=== PATIENT | female | born 1965 | race African-American/Black ===

== ENCOUNTER 2018-06-23 14:41 | Emergency (ER) | payer OTHER ==
[~2018-06-23] VITALS: Ht 160 cm; Wt 77.1 kg
--- OUTSIDE RECORDS SUMMARY | 2018-06-23 14:43 | XMS REPORT | Clinical Summary ---
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 06/22/2018 acetaminophen-codeine Take 1-2 15 tablet 0 (TYLENOL WITH CODEINE #3) tablets by 9 300-30 mg per tablet mouth every 6 (six) hours as needed for moderate pain for up to 5 days. Active Problems Not on file Encounters Care Team Description Date Type Specialty Kassandra Eubanks MD Acute foot pain, left (Primary Dx); Acute pain of right knee; Pain 06/16/2018 Emergency Emergency Medicine - 06/17/2018 after 06/22/2017 Social History Date Tobacco Use Types Packs/Day Years Used Current Some Day Smoker Smokeless Tobacco: Never Used Alcohol Use Drinks/Week oz/Week Comments No Alcohol Habits Answer Date Recorded How often do you have a drink containing alcohol? Never 06/17/2018 How many drinks containing alcohol do you have on Not asked a typical day when you are drinking? How often do you have six or more drinks on one Not asked occasion? Sex Assigned at Date Recorded Not on file Industry Job Start Date Occupation Not on file Not on file Not on file Travel End Travel History Travel Start No recent travel history available. Last Filed Vital Signs Time Taken Vital Sign Reading 06/17/2018 2:30 AM CDT Blood Pressure 128/58 06/17/2018 2:30 AM CDT Pulse 82 06/16/2018 10:54 PM CDT Temperature 36.7 C (98 F) 06/17/2018 2:30 AM CDT Respiratory Rate 16 06/17/2018 2:30 AM CDT Oxygen Saturation 97% - Inhaled Oxygen - Concentration 06/16/2018 10:54 PM CDT Weight 81.2 kg (179 lb) 06/16/2018 10:54 PM CDT Height 160 cm (5' 3") 06/16/2018 10:54 PM CDT Body Mass Index 31.71 Plan of Treatment Health Maintenance Due Date Last Done Comments CERVICAL CANCER SCREENING 1984 BREAST CANCER SCREENING 2013 COLON CANCER SCREENING 2013 SHINGLES VACCINES (#1) 2013 INFLUENZA VACCINE 10/26/2017 Procedures Comments Procedure Name Priority Date/Time Associated Diagnosis XR KNEE 4+ VW RIGHT STAT 06/16/2018 Pain 11:35 PM CDT XR FOOT 3+ VW LEFT STAT 06/16/2018 11:24 AM CDT after 06/22/2017 Results * XR Knee 4+ Vw Right (06/16/2018 11:35 PM CDT) Narrative Performed At EXAMINATION:XR KNEE 1 OR 2 VW RIGHT [facility] CLINICAL HISTORY:Knee paininitial exam COMPARISON:None. IMPRESSION: No evidence of acute right knee fracture, dislocation, or significant joint effusion. Bone mineralization is normal. Moderate degenerative changes with tricompartmental joint space narrowing and marginal osteophytes, greatest involving medial compartment. Soft tissues are unremarkable. [id number] Performing Organization Address City/State/Zipcode Phone Number [facility] [address] [place] [address] * XR Foot 3+ Vw Left (06/16/2018 11:24 AM CDT) Narrative Performed At EXAM:XR FOOT 3VW LEFT [facility] CLINICAL HISTORY:foot trauma COMPARISON:None. IMPRESSION: 1.Evidence for cortical plate fixating the dorsal first and second cuneiforms-metatarsals.. Concern for lucencies surrounding the first/medial cortical plate which may be reflective of loosening or infectious process. Furthermore, concern that the second proximal screw has been retracted with resulting bulging of the overlying soft tissues (best seen on the lateral view). Urgent (nonemergent) orthopedic consultation is recommended. 2.Widening of the first and second cuneiforms and metatarsals is likely related to a remote Lisfranc injury (status post fusion hardware). 3.Otherwise no radiographic evidence for an acute, displaced osseous fracture or dislocation. 4.Small plantar calcaneal spur. [id number] Procedure Note Interface, Radiology Results Incoming - 06/17/2018 12:28 AM CDT EXAM: XR FOOT 3 VW LEFT CLINICAL HISTORY: foot trauma COMPARISON: None. IMPRESSION: 1. Evidence for cortical plate fixating the dorsal first and second cuneiforms- metatarsals.. Concern for lucencies surrounding the first/medial cortical plate which may be reflective of loosening or infectious process. Furthermore, concern that the second proximal screw has been retracted with resulting bulging of the overlying soft tissues (best seen on the lateral view). Urgent (nonemergent) orthopedic consultation is recommended. 2. Widening of the first and second cuneiforms and metatarsals is likely related to a remote Lisfranc injury (status post fusion hardware). 3. Otherwise no radiographic evidence for an acute, displaced osseous fracture or dislocation. 4. Small plantar calcaneal spur. [id number] Performing Organization Address City/State/Zipcode Phone Number [facility] [phone] [place] [address] after 06/22/2017 Advance Directives Patient has advance care planning documents on file. For more information, annia arriola contact: Kishan Penny [address] [place] [address]
--- OUTSIDE RECORDS SUMMARY | 2018-06-23 14:43 | XMS REPORT | Continuity of Care Document ---
Author Author Grady quinonez Organization Interface Address Unknown Phone Unavailable Problems Problem Status Onset Date Classification Date Reported Comments Source LUMBAR HNP, STENOSIS, HIP PAIN Active 03/09/2018 [facility] STENOSIS Active 09/19/2017 [facility] Right leg pain Active 04/27/2017 Problem 12/26/2017 [facility] Generalized weakness Active 04/27/2017 Problem 12/26/2017 [facility] Gait abnormality Active 04/27/2017 Problem 12/26/2017 [facility] Risk for falls Active 04/27/2017 Problem 12/26/2017 [facility] Abnormal thyroid ultrasound Repeat US 11/10 Active 11/18/2014 Problem 12/26/2017 [facility] Hyperopia with astigmatism and presbyopia Active 11/08/2014 Problem 12/26/2017 [facility] NS Active 11/08/2014 Problem 12/26/2017 [facility] Dental examination Active 11/06/2014 Problem 12/26/2017 [facility] Secondhand smoke exposure Active 07/25/2014 Problem 12/26/2017 [facility] Anxiety Active 05/13/2014 Problem 12/26/2017 [facility] Depression Active 05/13/2014 Problem 12/26/2017 [facility] TIA Active 04/29/2014 Problem 12/26/2017 [facility] Diabetes Active 04/29/2014 Problem 12/26/2017 [facility] History of foot fracture Active 01/18/2014 Problem 12/26/2017 [facility] Left foot pain Active 01/18/2014 Problem 12/26/2017 [facility] Loose, teeth Active 01/01/2014 Problem 12/26/2017 [facility] Periodontitis Active 01/01/2014 Problem 12/26/2017 [facility] Posttraumatic stress disorder Active 12/06/2013 Problem 12/26/2017 [facility] Mood disorder in conditions classified elsewhere Active 11/29/2013 Problem 12/26/2017 [facility] Pain in joint, ankle and foot Active 11/23/2013 Problem 12/26/2017 [facility] Obesity, unspecified Active 11/23/2013 Problem 12/26/2017 [facility] Psychiatric symptoms Active 11/23/2013 Problem 12/26/2017 [facility] Hip pain Active Problem 10/02/2017 [facility] Prediabetes Active Problem 10/02/2017 [facility] Medications Medication Details Route Status Patient Instructions Ordering Provider Order Date Source Metformin Er 500 Mg Tablet,Extended Release 24 Hr Glucophage Xr 500 Mg Tablet,Extended Release Take 1 tablet by mouth daily (with breakfast). Oral Active 11/30/2017 [facility] Gabapentin 800 Mg Tablet Neurontin 800 Mg Tablet Take 1 tablet by mouth 3 times daily. Oral Active 11/14/2017 [facility] Trazodone 100 Mg Tablet Take 2 tablets by mouth at bedtime nightly. Oral Active 10/10/2017 [facility] Fluoxetine 20 Mg Capsule Prozac 20 Mg Capsule Take 3 capsules by mouth daily. Oral Active 10/10/2017 [facility] Carbamazepine 200 Mg Tablet Tegretol 200 Mg Tablet Take 1 tablet by mouth 3 times daily. Oral Active 10/10/2017 [facility] Clonazepam 0.5 Mg Tablet Klonopin 0.5 Mg Tablet Take 1 tablet by mouth 2 times daily as needed for Anxiety. Oral Active 10/10/2017 [facility] ketOROLAC 15 mg/mL injectable solution 15 mg, 0.5 mL, Route: IV, Drug form: INJ, ONCE, Dosing Weight 83.636, kg, Priority: NOW, Start date: 09/29/17 8:04:00 CDT, Stop date: 09/29/17 8:04:00 CDTNotes: (Same as:Toradol) IV bolus must be given >15 seconds. Give IM administration slowly and deeply into the muscle. Not for use > 4 days MEDICATION WASTE Product Size: 30 mg Product Wasted: ___ mg Inactive 09/29/2017 [facility] Acetaminophen 10 MG/ML Injectable Solution 1,000 mg, 100 mL, Route: IV, Drug form: INJ, ONCE, Dosing Weight 83.636, kg, Start date: 09/29/17 8:04:00 CDT, Stop date: 09/29/17 8:04:00 CDTNotes: Infuse over 15 minutes Do not exceed 4gm/day of acetaminophen MEDICATION WASTE Product Size: 1000 mg Product Wasted: ___ mg Inactive 09/29/2017 [facility] Lactated Ringers IV 1,000 mL 1,000 mL, Rate: 125 ml/hr, Infuse over: 8 hr, Route: IV, Dosing Weight 83.636 kg, Total Volume: 1,000, Start date: 09/29/17 8:04:00 CDT, Duration: 30 day, Stop date: 10/29/17 8:03:00 CDT, 1.96, m2 No Longer Active 09/29/2017 [facility] Ondansetron 4 mg, 1 tab, Route: PO, Drug form: TABDIS, ONCE, Dosing Weight 83.636, kg, PRN Nausea & Vomiting, Start date: 09/29/17 8:04:00 CDTNotes: (Same as: Zofran ODT) No Longer Active 09/29/2017 [facility] Acetaminophen 325 MG / Hydrocodone Bitartrate 10 MG Oral Tablet 1 tab, Route: PO, Drug Form: TAB, Dosing Weight 83.636, kg, Q4H, PRN Pain Score 4-6, Start date: 09/29/17 8:04:00 CDT, Duration: 30 day, Stop date: 10/29/17 8:03:00 CDTNotes: Do not exceed 4gm/day of acetaminophen. (Same as: [place] 325/10) No Longer Active 09/29/2017 [facility] Promethazine 12.5 mg, 0.5 mL, Route: IVPB, Drug form: INJ, Q4H, Dosing Weight 83.636, kg, PRN Nausea & Vomiting, Start date: 09/29/17 8:04:00 CDT, Duration: 30 day, Stop date: 10/29/17 8:03:00 CDTNotes: Do not give IV push. (Same as: Phenergan) No Longer Active 09/29/2017 [facility] Hydromorphone 1 mg, 0.5 mL, Route: IVP, Drug form: INJ, PRN, Dosing Weight 83.636, kg, PRN Pain Score 7-10, Start date: 09/29/17 8:04:00 CDT, Stop date: 10/29/17 8:03:00 CDTNotes: Same as Dilaudid No Longer Active 09/29/2017 [facility] Lactated Ringers IV 1,000 mL 1,000 mL, Rate: 125 ml/hr, Infuse over: 8 hr, Route: IV, Dosing Weight 83.636 kg, Total Volume: 1,000, Start date: 09/29/17 6:40:00 CDT, Duration: 30 day, Stop date: 10/29/17 6:39:00 CDT, 1.96, m2 Inactive 09/29/2017 [facility] Saline Flush 0.9% 10 ml, Route: IVP, Drug Form: INJ, Dosing Weight 83.636, kg, PRN, PRN Line Flush, Start date: 09/29/17 6:40:00 CDT, Duration: 30 day, Stop date: 10/29/17 6:39:00 CDTNotes: Same as: BD Posiflush Sterile No Longer Active 09/29/2017 [facility] Garlic Oil oral capsule 0 Refill(s) Active 09/20/2017 [facility] Fish Oil 1000 mg oral capsule 1,000 mg=1 cap, PO, TID, 0 Refill(s) Active 09/20/2017 [facility] Metformin 500 mg, PO, Daily, 0 Refill(s) Active 09/20/2017 [facility] Aspirin 81 MG Enteric Coated Tablet 81 mg=1 tab, PO, Daily, # 0 tab, 0 Refill(s) Active 09/20/2017 [facility] cinnamon 500 mg oral capsule 1,000 mg=2 cap, PO, BID, # 100 cap, 0 Refill(s) Active 09/20/2017 [facility] cyclobenzaprine 10 mg oral tablet 10 mg=1 tab, PO, TID, 0 Refill(s) Active 09/20/2017 [facility] tramadol hydrochloride 50 MG Oral Tablet 50 mg=1 tab, PO, Q4H, 0 Refill(s) Active 09/20/2017 [facility] Cyclobenzaprine 10 Mg Tablet Take 1 tablet by mouth 3 times daily as needed for Muscle Spasms. Oral Active 08/25/2017 [facility] Metformin Er 500 Mg Tablet,Extended Release 24 Hr Glucophage Xr 500 Mg Tablet,Extended Release Take 1 tablet by mouth daily (with breakfast). Oral No Longer Active 08/23/2017 [facility] Metformin Er 500 Mg Tablet,Extended Release 24 Hr Glucophage Xr 500 Mg Tablet,Extended Release Take 1 tablet by mouth daily (with breakfast) PLEASE MAKE APPOINTMENT AND HAVE ALT/AST LAB DONE FOR MORE REFILLS. Oral No Longer Active 04/07/2017 [facility] Sulindac 200 Mg Tablet Take 1 tablet by mouth 2 times daily as needed for Pain. Oral Active 04/06/2017 [facility] Cyclobenzaprine 10 Mg Tablet Take 1 tablet by mouth 3 times daily as needed for Muscle Spasms. Oral No Longer Active 04/06/2017 [facility] Gabapentin 800 Mg Tablet Neurontin 800 Mg Tablet Take 1 tablet by mouth 3 times daily. Oral No Longer Active 04/06/2017 [facility] Ergocalciferol (Vitamin D2) 50,000 Unit Capsule Vitamin D2 50,000 Unit Capsule Take 1 capsule by mouth weekly. Oral Active 04/06/2017 [facility] Azithromycin 500 Mg Tablet Zithromax 500 Mg Tablet Take 1 tablet by mouth daily for 3 days. Oral No Longer Active 02/07/2017 [facility] Zetonna 37 McG/Actuation Nasal Hfa Inhaler Use 1 [place] in each nostril daily. Active 02/07/2017 [facility] Codeine 10 Mg-Guaifenesin 100 Mg/5 Ml Oral Liquid Cheratussin Ac 10 Mg-100 Mg/5 Ml Oral Liquid Take 5 mL by mouth 3 times daily as needed for Cough. Oral Inactive 02/07/2017 [facility] Gabapentin 600 Mg Tablet Neurontin 600 Mg Tablet Take 1 tablet by mouth 3 times daily. Oral No Longer Active 02/07/2017 [facility] Gabapentin 300 Mg Capsule Neurontin 300 Mg Capsule Take 2 capsules by mouth 3 times daily. Oral No Longer Active 01/18/2017 [facility] Gabapentin 300 Mg Capsule Neurontin 300 Mg Capsule Take 1 capsule by mouth 3 times daily. Oral No Longer Active 12/17/2016 [facility] Sulindac 200 Mg Tablet Take 1 tablet by mouth 2 times daily as needed for Pain. Oral No Longer Active 12/17/2016 [facility] Metformin Er 500 Mg Tablet,Extended Release 24 Hr Glucophage Xr 500 Mg Tablet,Extended Release Take 1 tablet by mouth daily (with breakfast) PLEASE MAKE APPOINTMENT AND HAVE ALT/AST LAB DONE FOR MORE REFILLS. Oral No Longer Active 12/15/2016 [facility] Trazodone 100 Mg Tablet Take 2 tablets by mouth at bedtime nightly. Oral No Longer Active 12/15/2016 [facility] Fluoxetine 20 Mg Capsule Prozac 20 Mg Capsule Take 3 capsules by mouth daily. Oral No Longer Active 05/05/2016 [facility] Clonazepam 0.5 Mg Tablet Klonopin 0.5 Mg Tablet Take 1 tablet by mouth 2 times daily as needed for Anxiety. Oral No Longer Active 05/05/2016 [facility] Carbamazepine 200 Mg Tablet Tegretol 200 Mg Tablet Take 1 tablet by mouth 3 times daily. Oral No Longer Active 05/05/2016 [facility] Carbamazepine 200 Mg Tablet Tegretol 200 Mg Tablet Take 1 tablet by mouth 3 times daily. Oral No Longer Active 07/31/2015 [facility] Blood Sugar Diagnostic Strips 2 times weekly to test blood sugar. Active 01/27/2015 [facility] Lancets 28 Gauge 2 times weekly. Active 01/27/2015 [facility] Blood-Glucose Meter Use as directed.. Active 01/24/2015 [facility] Allergies, Adverse Reactions, Alerts Substance Category Reaction Severity Reaction type Status Date Reported Comments Source Immunizations Immunization Date Given Site Status Last Updated Comments Source Influenza Vaccine 01/01/2015 completed [facility] PPV 23 Pneumococcal Polysaccaride 01/01/2015 completed [facility] Influenza Vaccine 01/17/2014 [facility] Tdap Tetanus, diphtheria, acellular pertussis Vaccine 01/17/2014 completed [facility] PPD 01/15/2014 [facility] Results Order Name Results Value Reference Range Date Interpretation Comments Source OCCULT BLOOD ICT Occult Blood ICT Negative NEG 04/08/2017 [facility] TSH TSH 1.59 0.45 - 3.50 04/07/2017 [facility] COMPREHENSIVE METABOLIC PANEL(DBIL NOT INCLUDED) Albumin 3.9 g/dL 3.4 - 5 04/07/2017 [facility] COMPREHENSIVE METABOLIC PANEL(DBIL NOT INCLUDED) Calcium 9.5 mg/dL 8.5 - 10.2 04/07/2017 [facility] COMPREHENSIVE METABOLIC PANEL(DBIL NOT INCLUDED) CO2 27.6 mmol/L 21 - 32 04/07/2017 [facility] COMPREHENSIVE METABOLIC PANEL(DBIL NOT INCLUDED) Chloride 106 mmol/L 98 - 107 04/07/2017 [facility] COMPREHENSIVE METABOLIC PANEL(DBIL NOT INCLUDED) Creatinine 0.82 mg/dL 0.6 - 1.3 04/07/2017 [facility] COMPREHENSIVE METABOLIC PANEL(DBIL NOT INCLUDED) Glucose 96 mg/dL 70 - 99 04/07/2017 [facility] COMPREHENSIVE METABOLIC PANEL(DBIL NOT INCLUDED) Alk Phos 94 U/L 45 - 117 04/07/2017 [facility] COMPREHENSIVE METABOLIC PANEL(DBIL NOT INCLUDED) Potassium 4.6 mmol/L 3.5 - 5.1 04/07/2017 [facility] COMPREHENSIVE METABOLIC PANEL(DBIL NOT INCLUDED) Sodium 140 mmol/L 136 - 145 04/07/2017 [facility] COMPREHENSIVE METABOLIC PANEL(DBIL NOT INCLUDED) ALT 20 U/L 12 - 78 04/07/2017 [facility] COMPREHENSIVE METABOLIC PANEL(DBIL NOT INCLUDED) AST 25 U/L 15 - 37 04/07/2017 [facility] COMPREHENSIVE METABOLIC PANEL(DBIL NOT INCLUDED) Urea Nitrogen 15 mg/dL 7 - 18 04/07/2017 [facility] COMPREHENSIVE METABOLIC PANEL(DBIL NOT INCLUDED) T Bilirubin 0.4 mg/dL 0.2 - 1 04/07/2017 [facility] COMPREHENSIVE METABOLIC PANEL(DBIL NOT INCLUDED) T Protein 7.6 g/dL 6.4 - 8.2 04/07/2017 [facility] COMPREHENSIVE METABOLIC PANEL(DBIL NOT INCLUDED) GFR, Estimated >60 mL/min/1.73 m2 04/07/2017 [facility] COMPREHENSIVE METABOLIC PANEL(DBIL NOT INCLUDED) GFR, Estim, Afr-Am >60 mL/min/1.73 m2 04/07/2017 [facility] COMPREHENSIVE METABOLIC PANEL(DBIL NOT INCLUDED) Anion Gap 6.4 04/07/2017 [facility] LIPID PROFILE Cholesterol 195 mg/dL <200 04/07/2017 REFERENCE RANGE: Desirable: <200 mg/dL Borderline: 200-240 mg/dL High Risk: >240 mg/dL [facility] LIPID PROFILE Triglyceride 147 mg/dL <150 04/07/2017 REFERENCE RANGE: Normal: <150 mg/dL Borderline High: 150-199 mg/dL High: 200-499 mg/dL Very High: >ws=497 mg/dL [facility] LIPID PROFILE HDL 52 mg/dL 40 - 60 04/07/2017 Increased CHD risk: <40 mg/dL Decreased CHD risk: >60 mg/dL [facility] LIPID PROFILE LDL 114 mg/dL 04/07/2017 REFERENCE RANGE: Optimal: <100 mg/dL Near Optimal: 100-129 mg/dL Borderline High: 130-159 mg/dL High: 160-189 mg/dL Very High: >wg=003 mg/dL [facility] MICROALBUM, URINE Microalbum, Random 1.0 mg/dL 0 - 29 04/07/2017 [facility] MICROALBUM, URINE Creatinine, Ur 268.1 mg/dL 04/07/2017 [facility] MICROALBUM, URINE Urine Microalbumin 3.7 0 - 29 04/07/2017 To minimize intra-individual variation, analysis of three random urine samples collected over the course of a week is recommended. [facility] HEMOGLOBIN A1C Hemoglobin A1c 6.4 % 4.3 - 6.1 04/07/2017 [facility] HEMOGLOBIN A1C Est Average Gluc 137.0 mg/dL 04/07/2017 [facility] HEMOGLOBIN A1C Lab Interpretation Abnormal 04/07/2017 [facility] VIT D, 25-HYDROXY Vit D, 25-Hydroxy 30.7 ng/mL 30 - 100 04/07/2017 Vitamin D deficiency has been defined by the [place] [employer] and [employer] guideline as a level of serum 25-OH Vitamin D less than 20 ng/mL. The Endocrine Society further defines Vitamin D insufficiency as a level between 21 and 29 ng/mL and sufficiency as a level between 30 and 100 ng/mL. [facility] CBC/DIFF WBC 5.5 K/uL 4.5 - 11 04/06/2017 [facility] CBC/DIFF RBC 4.19 4.20 - 5.40 04/06/2017 [facility] CBC/DIFF Hemoglobin 12.4 g/dL 12 - 16 04/06/2017 [facility] CBC/DIFF Hematocrit 39.4 % 37 - 47 04/06/2017 [facility] CBC/DIFF MCV 94 fL 82 - 92 04/06/2017 [facility] CBC/DIFF MCH 29.6 pg 27 - 32 04/06/2017 [facility] CBC/DIFF MCHC 31.5 g/dL 32 - 36 04/06/2017 [facility] CBC/DIFF RDW 45.3 fL 36.4 - 46.3 04/06/2017 [facility] CBC/DIFF Platelet 328 K/uL 150 - 400 04/06/2017 [facility] CBC/DIFF Mean Platelet Volume 11.9 fL 9.4 - 12.4 04/06/2017 [facility] CBC/DIFF Percent NRBC 0.0 04/06/2017 [facility] CBC/DIFF Absolute NRBC 0.00 04/06/2017 [facility] CBC/DIFF Neutrophil 56.5 % 34 - 70 04/06/2017 [facility] CBC/DIFF Lymphocyte 33.5 % 20 - 50 04/06/2017 [facility] CBC/DIFF Monocyte 4.9 % 5 - 12 04/06/2017 [facility] CBC/DIFF Eosinophil 4.2 % 0.7 - 5 04/06/2017 [facility] CBC/DIFF Basophil 0.5 % 0.1 - 1.2 04/06/2017 [facility] CBC/DIFF Pct Immat Gran 0.4 0.0 - 0.5 04/06/2017 [facility] CBC/DIFF Neutrophil, Abs 3.11 K/uL 1.56 - 6.13 04/06/2017 [facility] CBC/DIFF Lymphocyte, Abs 1.84 K/uL 1.18 - 3.74 04/06/2017 [facility] CBC/DIFF Monocyte, Abs 0.27 K/uL 0.24 - 0.36 04/06/2017 [facility] CBC/DIFF Eosinophil, Abs 0.23 K/uL 0.04 - 0.36 04/06/2017 [facility] CBC/DIFF Basophil, Abs 0.03 K/uL 0.01 - 0.08 04/06/2017 [facility] CBC/DIFF Absol Immat Gran 0.02 K/uL 0 - 0.03 04/06/2017 [facility] CBC/DIFF Lab Interpretation Abnormal 04/06/2017 [facility] HIV-1/HIV-2 ROUTINE SCREENING HIV-1/HIV-2 Negative NEG 04/06/2017 [facility] MRI LUMBAR SPINE W/O CONTRAST IMPRESSION: Discogenic degenerative changes and mild facet arthropathy at L3-L4 through L5-S1. Small posterior annular fissure and focal left subarticular disc protrusion superimposed on a mild annular bulge at L4-L5 which results in subarticular zone stenosis and mild mass effect on transiting L5 nerve roots. Moderate left L5-S1 facet foraminal stenosis, without definitive foraminal encroachment on the exiting nerve root sleeve. This [facility] radiology report is a preliminary resident dictation until finalized by an attending.Changes to this preliminary report may occur in an additional preliminary or finalized version. Dictated By: Clyde Corrales MD, 02/22/2017 11:43 AM I have reviewed the study and agree with the findings in this report. Signed By: Virgilio See MD, 02/22/2017 11:57 AM EXAM: MRI LUMBAR SPINE WITHOUT CONTRAST DATE: 02/22/2017 10:02 AM INDICATION: Back pain. ADDITIONAL INFORMATION: 51-year-old female with leg numbness for 2 years.. COMPARISON: None. TECHNIQUE: Multiplanar, multisequence noncontrast MR imaging of the lumbar spine. IV contrast: None. FINDINGS: Normal height, alignment, and signal intensity of the lumbar vertebrae. The conus medullaris terminates in normal position at the L1 level. Paraspinal soft tissue are unremarkable. The T12-L1 through L2-L3 levels are normal. L3-L4: Loss of disc T2 signal reduction of disc height with mild annular bulge and mild facet arthropathy and thickening of the ligamentum flavum. Mild mass effect on the thecal sac without significant canal stenosis. Mild left foraminal stenosis. L4-L5: Reduction of disc height and loss of disc T2 signal with annular bulge and small posterior annular fissure, with superimposed focal left subarticular disc protrusion which results in mass effect on the thecal sac and mild mass effect on transiting left L5 nerve roots. Mild facet arthropathy and mild left foraminal stenosis. L5-S1: Loss of disc T2 signal with slight loss of disc height and shallow annular bulge. No spinal canal stenosis. Mild facet arthropathy. Moderate left foraminal stenosis. 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 ADDITIONAL INFORMATION: 51-year-old female with leg numbness for 2 years.. COMPARISON: None. TECHNIQUE: Multiplanar, multisequence noncontrast MR imaging of the lumbar spine. IV contrast: None. FINDINGS: Normal height, alignment, and signal intensity of the lumbar vertebrae. The conus medullaris terminates in normal position at the L1 level. Paraspinal soft tissue are unremarkable. The T12-L1 through L2-L3 levels are normal. L3-L4: Loss of disc T2 signal reduction of disc height with mild annular bulge and mild facet arthropathy and thickening of the ligamentum flavum. Mild mass effect on the thecal sac without significant canal stenosis. Mild left foraminal stenosis. L4-L5: Reduction of disc height and loss of disc T2 signal with annular bulge and small posterior annular fissure, with superimposed focal left subarticular disc protrusion which results in mass effect on the thecal sac and mild mass effect on transiting left L5 nerve roots. Mild facet arthropathy and mild left foraminal stenosis. L5-S1: Loss of disc T2 signal with slight loss of disc height and shallow annular bulge. No spinal canal stenosis. Mild facet arthropathy. Moderate left foraminal stenosis. IMPRESSION IMPRESSION: Discogenic degenerative changes and mild facet arthropathy at L3-L4 through L5-S1. Small posterior annular fissure and focal left subarticular disc protrusion superimposed on a mild annular bulge at L4-L5 which results in subarticular zone stenosis and mild mass effect on transiting L5 nerve roots. Moderate left L5-S1 facet foraminal stenosis, without definitive foraminal encroachment on the exiting nerve root sleeve. This [facility] radiology report is a preliminary resident dictation until finalized by an attending. Changes to this preliminary report may occur in an additional preliminary or finalized version. Dictated By: Clyde Corrales MD, 02/22/2017 11:43 AM I have reviewed the study and agree with the findings in this report. Signed By: Virgilio See MD, 02/22/2017 11:57 AM 02/22/2017 [facility] XRAY CHEST 2 VIEWS IMPRESSION: No acute cardiac or pulmonary pathology is identified in the chest. Signed By: Mark Kuhn MD, 02/08/2017 7:38 AM EXAM: XR CHEST 2 VIEWS DATE:02/07/2017 2:48 PM INDICATION: cough COMPARISON: 07/12/2014 TECHNIQUE: PA and lateral views DISCUSSION: Lines/tubes/devices: None. Heart and mediastinum: The cardiac silhouette is within normal limits in its transverse diameter. There is calcification in the aortic knob. Lungs and pleura: The lung bartlett are clear of consolidation or effusion. Pulmonary vascularity is normal. Bones/soft tissues: The bony structures are intact. Interface, Rad/Mammog In - 02/08/2017 7:43 AM NON CDL DRIVER EXAM: XR CHEST 2 VIEWS DATE: 02/07/2017 2:48 PM INDICATION: cough COMPARISON: 07/12/2014 TECHNIQUE: PA and lateral views DISCUSSION: Lines/tubes/devices: None. Heart and mediastinum: The cardiac silhouette is within normal limits in its transverse diameter. There is calcification in the aortic knob. Lungs and pleura: The lung bartlett are clear of consolidation or effusion. Pulmonary vascularity is normal. Bones/soft tissues: The bony structures are intact. IMPRESSION IMPRESSION: No acute cardiac or pulmonary pathology is identified in the chest. Signed By: Mark Kuhn MD, 02/08/2017 7:38 AM 02/08/2017 [facility] Vital Signs Vital Sign Value Date Comments Source Systolic (mm Hg) 130 10/10/2017 [facility] Diastolic (mm Hg) 80 10/10/2017 [facility] Heart Rate 82 10/10/2017 [facility] Temperature Oral (F) 36.94 [place] 10/10/2017 [facility] Respitory Rate 18 10/10/2017 [facility] Height 160 cm 10/10/2017 [facility] Weight 83.008 10/10/2017 [facility] BMI Calculated 32.42 10/10/2017 [facility] Systolic (mm Hg) 149 09/29/2017 [facility] Diastolic (mm Hg) 68 09/29/2017 [facility] Respitory Rate 15 09/29/2017 [facility] Heart Rate 72 09/29/2017 [facility] Systolic (mm Hg) 150 09/29/2017 [facility] Diastolic (mm Hg) 90 09/29/2017 [facility] Heart Rate 75 09/29/2017 [facility] Respitory Rate 16 09/29/2017 [facility] Heart Rate 78 09/29/2017 [facility] Respitory Rate 15 09/29/2017 [facility] Systolic (mm Hg) 137 09/29/2017 [facility] Diastolic (mm Hg) 75 09/29/2017 [facility] Weight 83.636 09/20/2017 [facility] BMI Calculated 32.66 09/20/2017 [facility] Height 160.02 cm 09/20/2017 [facility] Encounters Location Location Details Encounter Type Encounter Number Reason For Visit Attending Provider ADM Date DC Date Status Source Pharmacy OP SC Pharmacy Visit [id number] 01/06/2017 [facility] ASK YOUR NURSE PROGRAM Nurse Triage [id number] Kaitlin Chavarria RN 01/06/2017 [facility] EMG Services [facility] Hospital Encounter [id number] Right lumbar radiculopathy Right leg paresthesias Kaitlyn Coughlin MD 01/06/2017 01/07/2017 [facility] Pharmacy Visit [id number] 01/10/2017 [facility] Pharmacy Visit [id number] 01/11/2017 [facility] [facility] [id number] 01/12/2017 [facility] PH[facility]AC[facility] Pharmacy Visit [id number] 01/13/2017 [facility] [id number] 01/17/2017 [facility] [id number] 01/18/2017 [facility] [place] Orders Only [id number] Neuropathic arthropathy Kaitlyn Coughlin MD 01/18/2017 [facility] MRI [facility] Procedure Pass [id number] 02/07/2017 [facility] [facility] Visit [id number] 02/07/2017 [facility] [place] Office Visit [id number] Neuropathy Viral URI with cough Lisa Chavarria MD 02/07/2017 02/07/2017 [facility] Radiology [place] Ancillary Procedure [id number] Viral URI with cough Lisa Chavarria MD 02/07/2017 02/07/2017 [facility] [facility] Visit [id number] 02/11/2017 [facility] [facility] Visit [id number] 02/16/2017 [facility] Encounter [id number] Neuropathy Kaitlyn Coughlin MD 02/22/2017 02/23/2017 [facility] GI Lab Services [facility] Telephone [id number] Cheri Barr 03/11/2017 [facility] [place] Refill [id number] Diabetes mellitus due to underlying condition, uncontrolled, with hyperosmolarity without coma, without long-term current use of insulin Kaitlyn Coughlin MD 04/01/2017 [facility] Pharmacy Visit [id number] 04/04/2017 [facility] [place] Refill [id number] Diabetes mellitus due to underlying condition, uncontrolled, with hyperosmolarity without coma, without long-term current use of insulin Kaitlyn Coughlin MD 04/06/2017 [facility] [facility] [id number] 04/06/2017 [facility] Office Visit [id number] Lumbar spondylosis with myelopathy Type 2 diabetes mellitus without complication, without long- term current use of insulin Mixed hyperlipidemia Vitamin D deficiency Routine adult health maintenance Colon cancer screening Breast cancer screening Encounter to discuss test results Tres Stephen MD 04/06/2017 04/06/2017 [facility] [id number] 04/07/2017 [facility] [id number] 04/08/2017 [facility] Orders Only [id number] Colon cancer screening Tres Stephen MD 04/08/2017 [facility] [id number] 04/26/2017 [facility] Therapy [id number] Right leg pain Left foot pain Balance problems Generalized weakness Gait abnormality Risk for falls Minal Mckee PT 04/26/2017 04/26/2017 [facility]acy Visit [id number] 05/26/2017 [facility] [facility] [id number] 05/30/2017 [facility] Pharmacy Visit [id number] 05/30/2017 [facility] [place] [facility] Visit [id number] 06/06/2017 [facility] [facility] Visit [id number] 06/07/2017 [facility] [place] Telephone [id number] Laura Smith MD 06/23/2017 [facility] Office Visit [id number] Neuropathy Mark Avalos MD 07/08/2017 07/08/2017 [facility] [place] Refill [id number] Diabetes mellitus due to underlying condition, uncontrolled, with hyperosmolarity without coma, without long-term current use of insulin China Cervantes MD 08/23/2017 [facility] [facility] [id number] 08/23/2017 [facility] [place] Refill [id number] Lumbar spondylosis with myelopathy Tres Stephen MD 08/23/2017 [facility] [facility] Visit [id number] 08/24/2017 [facility] [facility] Visit [id number] 08/25/2017 [facility] [facility] Visit [id number] 08/26/2017 [facility] [facility] Visit [id number] 09/07/2017 [facility] [facility] Visit [id number] 09/12/2017 [facility] [facility] Visit [id number] 09/23/2017 [facility] [facility] Visit [id number] 09/26/2017 [facility] Day Surgery [id number] Hieu Alva 09/29/2017 09/30/2017 [facility] [id number] 10/03/2017 [facility] [place] Orders Only [id number] PTSD (post-traumatic stress disorder) Laura Smith MD 10/10/2017 [facility] [facility] [id number] 10/10/2017 [facility] Office Visit [id number] PTSD (post-traumatic stress disorder) Laura Smith MD 10/10/2017 10/10/2017 [facility] [facility] [id number] 10/21/2017 [facility] [facility] Visit [id number] 10/24/2017 [facility] Refill [id number] Lumbar spondylosis with myelopathy Tres Stephen MD 11/12/2017 [facility] [id number] 11/14/2017 [facility] [place] Refill [id number] Diabetes mellitus due to underlying condition, uncontrolled, with hyperosmolarity without coma, without long-term current use of insulin Kaitlyn Coughlin MD 11/27/2017 [facility] [facility] [id number] 11/29/2017 [facility] [facility] Visit [id number] 11/30/2017 [facility] Visit [id number] 12/07/2017 [facility] [facility] Visit [id number] 12/08/2017 [facility] [facility] Visit [id number] 12/15/2017 [facility] Pharmacy Visit [id number] 12/21/2017 [facility] [facility] Visit [id number] 12/21/2017 [facility] Procedures Procedure Code Date Perfomer Comments Source OCCULT BLOOD ICT 34903 04/08/2017 [facility] TSH 77253 04/06/2017 [facility] MICROALBUM, URINE 10952 04/06/2017 [facility] LIPID PROFILE 54404 04/06/2017 [facility] HIV-1/HIV-2 ROUTINE SCREENING 01525 04/06/2017 [facility] HEMOGLOBIN A1C 50672 04/06/2017 [facility] COMPREHENSIVE METABOLIC PANEL(DBIL NOT INCLUDED) 85575 04/06/2017 [facility] CBC/DIFF 86461 04/06/2017 [facility] VIT D, 25-HYDROXY 33523 04/06/2017 [facility] HEMOCCULT KIT FOR SPECIMEN COLLECTION AT HOME 71091 04/06/2017 [facility] MRI LUMBAR SPINE W/O CONTRAST 81406 02/22/2017 [facility] XRAY CHEST 2 VIEWS 53826 02/07/2017 [facility] Open reduction and internal fixation of fracture<sup>1</sup> [id number] 03/28/2008 left foot [facility]
--- OUTSIDE RECORDS SUMMARY | 2018-06-23 14:44 | XMS REPORT ---
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 Allergies, Adverse Reactions, Alerts This patient has no known allergies or adverse reactions. Medications This patient has no known medications. Encounters Start Date/Time End Date/Time Encounter Type Admission Type Attending [facility] Facility Care Department Encounter ID 2018-02-10 00:00:00 2018-02-10 00:00:00 Outpatient [facility] [id number] 2018-01-31 00:00:00 2018-01-31 00:00:00 Outpatient [facility] [id number] 2018-01-19 10:20:32 2018-01-19 10:20:32 Outpatient [facility] [id number] 2018-01-17 00:00:00 2018-01-17 00:00:00 Outpatient [facility] [id number] 2018-01-12 13:06:24 2018-01-12 13:06:24 Outpatient [facility] [id number] 2018-01-03 00:00:00 2018-01-03 00:00:00 Outpatient [facility] [id number] 2017-12-26 09:20:27 2017-12-26 09:20:27 Outpatient [facility] [id number] 2017-12-01 00:00:00 2017-12-01 00:00:00 Outpatient [facility] [id number] 2017-11-25 00:00:00 2017-11-25 00:00:00 Outpatient [facility] [id number] 2017-10-10 08:11:04 2017-10-10 08:11:04 Outpatient [facility] [id number] 2017-09-05 00:00:00 2017-09-05 00:00:00 Outpatient [facility] [id number] 2017-08-18 00:00:00 2017-08-18 00:00:00 Outpatient [facility] [id number] 2017-07-25 00:00:00 2017-07-25 00:00:00 Outpatient [facility] [id number] 2017-07-08 08:23:36 2017-07-08 08:23:36 Outpatient [facility] [id number] 2017-07-01 00:00:00 2017-07-01 00:00:00 Outpatient [facility] [id number] 2017-06-24 00:00:00 2017-06-24 00:00:00 Outpatient [facility] [id number] 2017-06-16 00:00:00 2017-06-16 00:00:00 Outpatient [facility] [id number] 2017-06-15 00:00:00 2017-06-15 00:00:00 Outpatient [facility] [id number] 2017-06-02 00:00:00 2017-06-02 00:00:00 Outpatient [facility] [id number] 2017-05-26 00:00:00 2017-05-26 00:00:00 Outpatient [facility] [id number] 00:00:00 2017 00:00:00 Outpatient [facility] [id number] 2017-04-26 10:57:58 2017-04-26 10:57:58 Outpatient [facility] [id number] 2017-04-20 00:00:00 2017-04-20 00:00:00 Outpatient [facility] [id number] 2017-04-08 10:59:17 2017-04-08 10:59:17 Outpatient [facility] [id number] 2017-04-06 10:53:38 2017-04-06 10:53:38 Outpatient [facility] [id number] 2017-04-06 09:55:07 2017-04-06 09:55:07 Outpatient [facility] [id number] 2017-03-17 00:00:00 2017-03-17 00:00:00 Outpatient [facility] [id number] 2017-03-01 00:00:00 2017-03-01 00:00:00 Outpatient [facility] [id number] 2017-02-22 07:36:52 2017-02-22 07:36:[address] [facility] [id number] 2017-02-22 00:00:00 2017-02-22 00:00:00 Outpatient [facility] [id number] 2017-02-07 14:39:40 2017-02-07 14:39:[address] [facility] [id number] 2017-02-07 13:45:19 2017-02-07 13:45:19 Outpatient [facility] [id number] 2017-02-03 00:00:00 2017-02-03 00:00:00 Outpatient [facility] [id number] 2017-01-06 13:06:39 2017-01-06 13:06:39 Outpatient [facility] [id number] 2016-12-17 08:08:53 2016-12-17 08:08:53 Outpatient [facility] [id number] 2016-12-17 08:05:30 2016-12-17 08:05:30 Outpatient [facility] [id number] 2016-12-17 07:50:55 2016-12-17 07:50:55 Outpatient [facility] [id number] 2016-12-17 07:19:21 2016-12-17 07:19:21 Outpatient [facility] [id number] Results Test Description Test Time Test Comments Text Results Atomic Results Result Comments CR - XRAY CONSULTATION PAIN MANAGEMENT PAIN MANAGEMENT CONSULTATION HISTORY AND PHYSICALCHIEF COMPLAINT: Bilateral low back and leg pain with numbness, right greater than left.HISTORY OF PRESENT ILLNESS: The patient is a 52-year-old [facility] with a 2-year history of progressive bilateral low back and leg pain with numbness. There was no known precipitating incident. The patient was initially managed conservatively with medications however, later these were not effective. She had an EMG (the results of which are not available), however she says this was suggestive of a "low back cause". We are going to try to get these results. An MRI of the lumbar spine without contrast was done on 02/22/2017 showing disc degeneration, spondylosis and posterior disc protrusions/herniations L3-4 through L5-S1 levels. Mild to moderate central canal narrowing noted at L4-5 and mild central canal narrowing noted at L3-4. Her pain is described as a burning pain aggravated by walking sitting standing bending and changes in the weather. Medications provide minimal relief. The patient has had weakness and numbness in both lower extremities with falling episodes. The patient has a sleep disturbance as a result of a pain. She has occasional bladder incontinence without bowel incontinence. She has no fever or chills.Medical history includes diabetes, however she is otherwise healthy. She has no known drug allergies.IMAGING: As above.PHYSICAL EXAMINATION : Overweight pleasant, black female in no acute distress. She has a antalgic guarded gait which is broad-based and is unable to heel/toe walk. Lumbar flexion is limited to 85 degrees with increased pain at 5 degrees. Lumbar extension is limited to 15 degrees with usual pain at 5 degrees. Right lateral flexion limited 10 degrees with usual pain at 5 degrees and left lateral flexion limited to 5 degr ees with usual pain at end range of motion. The patient has severe pain on palpation over both L4-5 and L five-vessel and facets with mild pain on palpation over remaining lumbar paraspinal regions. She has moderate pain on palpation over both SI joints with positive Alec s test to the right and left. She has negative SI joint compression test bilaterally she has moderate pain on palpation of both piriformis/gluteal regions and moderate pain on palpation over both greater trochanteric bursa. She has a positive straight leg raising test at 45 degrees to the right for right buttock and leg pain. Lesegues test is positive to the right. She has a positive straight leg raising test to the left at 45 degrees for buttock and leg pain with positive Lesegues test to the left. She has mild to moderate pain on internal/external rotation and flexion/extension of both hips. She has a Lisfranc fracture deformity left foot with hypertrophic scar tissue. She has none dermatomal decreased sensation left lower extremity when compared with right. She has 5/5 strength throughout both lower extremities with the exception of left L 4 ankle dorsi flexion which was unable to be tested due to fracture deformity.IMPRESSION: 1. Lumbar disc degeneration, lumbar disc herniation, lumbosacral stenosis, lumbosacral radiculopathy, lumbosacral spondylosis, sacroiliitis2. I suspect primary pain generators are L4-5 and L5-S1 segments possibly with contributions from SI joints. The patient is in too much pain to consider physical therapy at this time. I have advised her to begin scheduled nonsteroidal anti-inflammatory ove [id number] medications with food. She is to continue gabapentin and muscle relaxors. I have prescribed Tramadol 50 mg tabs, one p.o. q.6h. p.r.n. pain. I will proceed with bilateral L4-5 and L5-S1 trans foraminal epidural steroid injections. If the patient does not have significant relief I will proceed with diagnostic/therapeutic bilateral L4-5 and L5-S1 facet blocks and bilateral SI joint blocks. Patient will be reevaluated.D Radiologic examination, hips, bilateral, with pelvis when performed; 2 views [[id number]] CLINICAL INDICATION: M25.551 Pain in right hipM25.552 Pain in left hipFINDINGS:COMPARISON: NoneOnly mild superior joint space reduction noted. Minimal acetabular osteophyte formation laterallyNo fractures, dislocations or destructive lesions are seen.Soft tissue planes appear normal. No periarticular abnormalities are seen. IMPRESSION:1. Mild superior joint space reduction both hips. Consider mild osteoarthritis.
--- OUTSIDE RECORDS SUMMARY | 2018-06-23 14:44 | XMS REPORT | Clinical Summary ---
Author Author [facility] Organization [facility] Address Unknown Phone Unavailable Care Team Providers Care Pot Reliner Name Role Phone Kaitlyn Mcneal MD PCP Allergies No Known Allergies Current Medications Prescription Sig. Disp. Refills Start End Date Status Date blood glucose Use as directed.. 1 Kit 0 01/25/20 Active meterIndications: 15 Diabetes mellitus type II, controlled blood glucose test 2 times weekly to test 50 Each 3 01/28/20 Active stripsIndications: blood sugar. 15 Diabetes mellitus type II, controlled lancets 28 2 times weekly. 100 Each 1 01/28/20 Active gaugeIndications: 15 Diabetes mellitus type II, controlled ciclesonide (ZETONNA) 37 Use 1 [place] in each 6.1 g 1 02/08/20 Active mcg/actuation nasal HFA nostril daily. 17 inhalerIndications: Viral URI with cough sulindac (CLINORIL) 200 Take 1 tablet by mouth 2 60 tablet 3 04/06/19 Active mg tabletIndications: times daily as needed for 18 Lumbar spondylosis with Pain. myelopathy ergocalciferol (VITAMIN Take 1 capsule by mouth 12 capsule 1 04/06/19 Active D2) 50,000 unit weekly. 18 capsuleIndications: Vitamin D deficiency cyclobenzaprine Take 1 tablet by mouth 3 90 tablet 1 08/26/19 Active (FLEXERIL) 10 mg times daily as needed for 18 tabletIndications: Lumbar Muscle Spasms. spondylosis with myelopathy traZODone (DESYREL) 100 Take 2 tablets by mouth 180 tablet 1 10/11/19 Active mg tabletIndications: at bedtime nightly. 18 PTSD (post-traumatic stress disorder) FLUoxetine (PROZAC) 20 mg Take 3 capsules by mouth 270 capsule 1 10/11/19 Active capsuleIndications: PTSD daily. 18 (post-traumatic stress disorder) carBAMazepine (TEGRETOL) Take 1 tablet by mouth 3 270 tablet 1 10/11/19 Active 200 mg tabletIndications: times daily. 18 PTSD (post-traumatic stress disorder) clonazePAM (KLONOPIN) 0.5 Take 1 tablet by mouth 2 21 tablet 2 10/11/19 Active mg tabletIndications: times daily as needed for 18 PTSD (post-traumatic Anxiety. stress disorder) gabapentin (NEURONTIN) Take 1 tablet by mouth 3 270 tablet 0 11/15/19 Active 800 mg tabletIndications: times daily. 18 Lumbar spondylosis with myelopathy metFORMIN (GLUCOPHAGE XR) Take 1 tablet by mouth 90 tablet 0 12/01/19 Active 500 mg ER extended daily (with breakfast). 18 release tabletIndications: Diabetes mellitus due to underlying condition, uncontrolled, with hyperosmolarity without coma, without long-term current use of insulin carBAMazepine (TEGRETOL) Take 1 tablet by mouth 3 90 tablet 2 07/31/19 04/06/19 Discontin 200 mg tabletIndications: times daily. 16 18 ued PTSD (post-traumatic stress disorder) FLUoxetine (PROZAC) 20 mg Take 3 capsules by mouth 270 capsule 1 05/05/19 10/11/19 Discontin capsuleIndications: PTSD daily. 17 18 ued (post-traumatic stress disorder) clonazePAM (KLONOPIN) 0.5 Take 1 tablet by mouth 2 45 tablet 2 05/05/19 10/11/19 Discontin mg tabletIndications: times daily as needed for 17 18 ued PTSD (post-traumatic Anxiety. stress disorder) carBAMazepine (TEGRETOL) Take 1 tablet by mouth 3 60 tablet 2 05/05/19 04/06/19 Discontin 200 mg tabletIndications: times daily. 17 18 ued Bipolar disorder, unspecified metFORMIN (GLUCOPHAGE XR) Take 1 tablet by mouth 90 tablet 0 12/16/19 04/01/19 Discontin 500 mg ER extended daily (with breakfast) 17 18 ued release PLEASE MAKE APPOINTMENT tabletIndications: AND HAVE ALT/AST LAB DONE Diabetes mellitus due to FOR MORE REFILLS. underlying condition, uncontrolled, with hyperosmolarity without coma, without long-term current use of insulin traZODone (DESYREL) 100 Take 2 tablets by mouth 180 tablet 1 12/16/19 10/11/19 Discontin mg tabletIndications: at bedtime nightly. 17 18 ued PTSD (post-traumatic stress disorder) gabapentin (NEURONTIN) Take 1 capsule by mouth 3 270 capsule 3 12/18/19 01/19/20 Discontin 300 mg times daily. 17 17 ued capsuleIndications: Neuropathic arthropathy sulindac (CLINORIL) 200 Take 1 tablet by mouth 2 60 tablet 3 12/18/19 04/06/19 Discontin mg tabletIndications: times daily as needed for 17 18 ued Pain in both knees, Pain. unspecified chronicity gabapentin (NEURONTIN) Take 2 capsules by mouth 270 capsule 3 01/19/20 02/08/20 Discontin 300 mg 3 times daily. 17 17 ued capsuleIndications: Neuropathic arthropathy azithromycin (ZITHROMAX) Take 1 tablet by mouth 3 tablet 0 02/08/20 02/11/20 500 mg tabletIndications: daily for 3 days. 17 17 Viral URI with cough codeine-guaiFENesin Take 5 mL by mouth 3 120 mL 0 02/08/20 02/08/20 Discontin (CHERATUSSIN AC) 10-100 times daily as needed for 17 17 ued mg/5 mL syrupIndications: Cough. Viral URI with cough gabapentin (NEURONTIN) Take 1 tablet by mouth 3 270 tablet 3 02/08/20 04/06/19 Discontin 600 mg tabletIndications: times daily. 17 18 ued Neuropathy codeine-guaiFENesin Take 5 mL by mouth 3 120 mL 0 02/08/20 04/06/19 Discontin (CHERATUSSIN AC) 10-100 times daily as needed for 17 18 ued mg/5 mL syrupIndications: Cough. Viral URI with cough cyclobenzaprine Take 1 tablet by mouth 3 90 tablet 1 04/06/19 08/24/19 Discontin (FLEXERIL) 10 mg times daily as needed for 18 18 ued tabletIndications: Lumbar Muscle Spasms. spondylosis with myelopathy gabapentin (NEURONTIN) Take 1 tablet by mouth 3 270 tablet 1 04/06/19 11/13/19 Discontin 800 mg tabletIndications: times daily. 18 18 ued Lumbar spondylosis with myelopathy metFORMIN (GLUCOPHAGE XR) Take 1 tablet by mouth 90 tablet 0 04/07/19 08/24/19 Discontin 500 mg ER extended daily (with breakfast) 18 18 ued release PLEASE MAKE APPOINTMENT tabletIndications: AND HAVE ALT/AST LAB DONE Diabetes mellitus due to FOR MORE REFILLS. underlying condition, uncontrolled, with hyperosmolarity without coma, without long-term current use of insulin metFORMIN (GLUCOPHAGE XR) Take 1 tablet by mouth 90 tablet 0 08/24/19 11/28/19 Discontin 500 mg ER extended daily (with breakfast). 18 18 ued release tabletIndications: Diabetes mellitus due to underlying condition, uncontrolled, with hyperosmolarity without coma, without long-term current use of insulin Active Problems Problem Noted Date Right leg pain 04/27/2017 Balance problems 04/27/2017 Generalized weakness 04/27/2017 Gait abnormality 04/27/2017 Risk for falls 04/27/2017 Abnormal thyroid ultrasound Repeat US 11/1011/18/2014 Hyperopia with astigmatism and presbyopia 11/08/2014 NS (nuclear sclerosis) 11/08/2014 Dental examination 11/06/2014 Secondhand smoke exposure 07/25/2014 Anxiety 05/13/2014 Overview: not on meds, took prozac before Depression 05/13/2014 Overview: not on meds, took prozac before TIA (transient ischemic attack) 04/29/2014 Diabetes 04/29/2014 Overview: new onset History of foot fracture 01/18/2014 Left foot pain 01/18/2014 Loose, teeth 01/01/2014 Periodontitis 01/01/2014 Posttraumatic stress disorder 12/06/2013 Mood disorder in conditions classified elsewhere 11/29/2013 Pain in joint, ankle and foot 11/23/2013 Obesity, unspecified 11/23/2013 Psychiatric symptoms 11/23/2013 Encounters Date Type Specialty Care Team Description 12/21/2017 Pharmacy Visit 12/21/2017 Pharmacy Visit 12/15/2017 Pharmacy Visit 12/08/2017 Pharmacy Visit 12/07/2017 Pharmacy Visit 11/30/2017 Pharmacy Visit 11/29/2017 Pharmacy Visit 11/27/2017 Refill Family Practice Kaitlyn Mcneal Diabetes mellitus due to MD underlying condition, uncontrolled, with hyperosmolarity without coma, without long-term current use of insulin 11/14/2017 Pharmacy Visit 11/12/2017 Refill Family Practice Tres Stephen MD Lumbar spondylosis with myelopathy 10/24/2017 Pharmacy Visit 10/21/2017 Pharmacy Visit 10/10/2017 Office Visit Psychiatry Laura Smith MD PTSD (post-traumatic stress disorder) (Primary Dx) 10/10/2017 Orders Only Psychiatry Laura Smith MD PTSD (post-traumatic stress disorder) 10/10/2017 Pharmacy Visit 10/03/2017 Pharmacy Visit 09/26/2017 Pharmacy Visit 09/23/2017 Pharmacy Visit 09/12/2017 Pharmacy Visit 09/07/2017 Pharmacy Visit 08/26/2017 Pharmacy Visit 08/25/2017 Pharmacy Visit 08/24/2017 Pharmacy Visit 08/23/2017 Refill Family Practice China Cervantes MD Diabetes mellitus due to underlying condition, uncontrolled, with hyperosmolarity without coma, without long-term current use of insulin 08/23/2017 Pharmacy Visit 08/23/2017 Refill [facility] Tres Stephen MD Lumbar spondylosis with myelopathy 07/08/2017 Office Visit Radiology Mark Avalos MD Neuropathy (Primary Dx) 06/23/2017 Telephone Psychiatry Laura Smith MD Appointment Related Questions 06/07/2017 Pharmacy Visit 06/06/2017 Pharmacy Visit 05/30/2017 Pharmacy Visit 05/30/2017 Pharmacy Visit 05/26/2017 Pharmacy Visit 04/26/2017 Therapy Physical Therapy Minal Mckee PT Right leg pain (Primary Dx); Left foot pain; Balance problems; Generalized weakness; Gait abnormality; Risk for falls 04/26/2017 Pharmacy Visit 04/08/2017 Pharmacy Visit 04/08/2017 Orders Only [facility] Tres Escobar MD Colon cancer screening 04/07/2017 Pharmacy Visit 04/06/2017 Office Visit Family Practice Tres Stephen MD Lumbar spondylosis with myelopathy (Primary Dx); Type 2 diabetes mellitus without complication, without long-term current use of insulin; Mixed hyperlipidemia; Vitamin D deficiency; Routine adult health maintenance; Colon cancer screening; Breast cancer screening; Encounter to discuss test results 04/06/2017 Refill Family Practice Kaitlyn Mcneal, Diabetes mellitus due to MD underlying condition, uncontrolled, with hyperosmolarity without coma, without long-term current use of insulin 04/06/2017 Pharmacy Visit 04/04/2017 Pharmacy Visit 04/01/2017 Refill [facility] Kaitlyn Mcneal, Diabetes mellitus due to MD underlying condition, uncontrolled, with hyperosmolarity without coma, without long-term current use of insulin 03/11/2017 Telephone GastroenterCheri Tanner Colon Cancer Screening (Education on FIT completion ) 02/22/2017 Hospital Radiology Kaitlyn Mcneal, Neuropathy Encounter MD 02/16/2017 Pharmacy Visit 02/11/2017 Pharmacy Visit 02/07/2017 Ancillary Radiology Lisa Chavarria MD Viral URI with cough Procedure 02/07/2017 Office Visit Family Practice Lisa Chavarria MD Viral URI with cough (Primary Dx); Neuropathy 02/07/2017 Procedure Pass Radiology 02/07/2017 Pharmacy Visit 01/18/2017 Pharmacy Visit 01/18/2017 Orders Only Family Practice Kaitlyn Mcneal, Neuropathic arthropathy 01/17/2017 Pharmacy Visit 01/13/2017 Pharmacy Visit 01/12/2017 Pharmacy Visit 01/11/2017 Pharmacy Visit 01/10/2017 Pharmacy Visit 01/06/2017 [facility] and Kaitlyn Mcneal, Right lumbar Encounter Rehab radiculopathy (Primary Dx); Right leg paresthesias 01/06/2017 Pharmacy Visit 01/06/2017 Nurse Triage Kaitlin Chavarria RN after 12/25/2016 Immunizations Name Dates Previously Given Next Due Influenza Vaccine 01/01/2015, 01/17/2014 PPD 01/15/2014 PPV 23 Pneumococcal 01/01/2015 Polysaccaride Tdap Tetanus, diphtheria, 01/17/2014 acellular pertussis Vaccine Family History Medical History Relation Name Comments Other Brother Cancer Brother Heart Father Hypertension Father Diabetes Maternal Grandmother Heart Maternal Grandmother COPD Mother Diabetes Mother Hypertension Mother Heart Paternal Grandfather Heart Paternal Grandmother Relation Name Status Comments Brother Alive Brother Brother Father Maternal Grandfather Maternal Grandmother Mother Alive Paternal Grandfather Paternal Grandmother Sister Alive Sister Alive Sister Alive Social History Tobacco Use Types Packs/Day Years Used Date Never Smoker Smokeless Tobacco: Never Used Tobacco Cessation: Counseling Given: No Alcohol Use Drinks/Week oz/Week Comments No Sex Assigned at Date Recorded Not on file Last Filed Vital Signs Vital Sign Reading Time Taken Blood Pressure 130/80 10/10/2017 8:11 AM CDT Pulse 82 10/10/2017 8:11 AM CDT Temperature 36.9 C (98.5 F) 10/10/2017 8:11 AM CDT Respiratory Rate 18 10/10/2017 8:11 AM CDT Oxygen Saturation 99% 10/10/2017 8:11 AM CDT Inhaled Oxygen - - Concentration Weight 83 kg (183 lb) 10/10/2017 8:11 AM CDT Height 160 cm (5' 3") 10/10/2017 8:11 AM CDT Body Mass Index 32.42 10/10/2017 8:11 AM CDT Plan of Treatment Date Type Specialty Care Team Description 12/26/2017 Office Visit Psychiatry Laura Smith MD [address] [address] 01/03/2018 Office Visit Psychology Luis Daniel Phillips [address] [place], [place] [id number] Health Maintenance Due Date Last Done Comments Breast Cancer Scrn 05/03/2017 05/03/2016, 01/28/2015, 01/30/2014 (Yearly) DM Foot Exam (Yearly) 12/17/2017 12/17/2016, 10/23/2014 DM Retinal Exam (Yearly) 12/17/2017 12/17/2016, 01/14/2016, 11/08/2014, Additional history exists DM HGBA1C (Yearly) 04/06/2018 04/06/2017, 12/17/2016, 05/13/2016, Additional history exists DM Microalbumin Urine 04/06/2018 04/06/2017, 12/17/2016, 11/17/2015, Scrn (Yearly) Additional history exists Colorectal Cancer Scrn 04/08/2018 04/08/2017, 11/25/2015 Annual (FIT/FOBT) Age 50 to 75 Cervical Cancer Scrn (3 05/13/2019 05/13/2016, 01/15/2014 Yrs) Implants Implanted Type Area Library Sales Consultant Device Expiration Model / Identifier Date Serial / Lot Dbx Putty Left: Foot 06/19/2016 [id number] / Implanted: Qty: 1 on 12/17/2014 by [id number] Clark Eisenberg MD [id number] / Cortical Screw Left: Foot 201.774 / Implanted: Qty: 2 on 12/17/2014 by / Clark Eisenberg MD Dbx Putty Left: Foot 06/17/2016 [id number] / Implanted: Qty: 1 on 12/17/2014 by [id number] Clark Eisenberg MD [id number] / 2.4 Lcp Plate Left: Foot 247.375 / Implanted: Qty: 1 on 12/17/2014 by / Clark Eisenberg MD Cortical Screw Left: Foot 201.776 / Implanted: Qty: 2 on 12/17/2014 by / Clark Eisenberg MD Cortical Screw Left: Foot 201.778 / Implanted: Qty: 1 on 12/17/2014 by / Clark Eisenberg MD Cortical Screw Left: Foot 201.782 / Implanted: Qty: 1 on 12/17/2014 / Cortical Screw Left: Foot 201.784 / Implanted: Qty: 2 on 12/17/2014 by / Clark Eisenberg MD 2.4 Lcp Plate Left: Foot 249.674 / Implanted: Qty: 1 on 12/17/2014 by / Clark Eisenberg MD Cortical Screw Left: Foot 201.780 / Implanted: Qty: 2 on 12/17/2014 by / Clark Eisenberg MD Procedures Procedure Name Priority Date/Time Associated Diagnosis Comments OCCULT BLOOD ICT Routine 04/08/2017 Colon cancer screening Results for this 10:55 AM INTERACTIVE DEVELOPER procedure are in the results section. VIT D, 25-HYDROXY Routine 04/06/2017 Vitamin D deficiency Results for this 10:53 AM INTERACTIVE DEVELOPER procedure are in the results section. CBC/DIFF Routine 04/06/2017 Routine adult health Results for this 10:53 AM INTERACTIVE DEVELOPER maintenance procedure are in the results section. COMPREHENSIVE METABOLIC Routine 04/06/2017 Routine adult health Results for this PANEL(DBIL NOT INCLUDED) 10:53 AM INTERACTIVE DEVELOPER maintenance procedure are in the results section. HEMOGLOBIN A1C Routine 04/06/2017 Routine adult health Results for this 10:53 AM INTERACTIVE DEVELOPER maintenance procedure are in the Type 2 diabetes mellitus results section. without complication, without long-term current use of insulin HIV-1/HIV-2 ROUTINE Routine 04/06/2017 Routine adult health Results for this SCREENING 10:53 AM INTERACTIVE DEVELOPER maintenance procedure are in the results section. LIPID PROFILE Routine 04/06/2017 Routine adult health Results for this 10:53 AM INTERACTIVE DEVELOPER maintenance procedure are in the Mixed hyperlipidemia results section. MICROALBUM, URINE Routine 04/06/2017 Routine adult health Results for this 10:53 AM INTERACTIVE DEVELOPER maintenance procedure are in the results section. TSH Routine 04/06/2017 Routine adult health Results for this 10:53 AM INTERACTIVE DEVELOPER maintenance procedure are in the results section. HEMOCCULT KIT FOR Routine 04/06/2017 Breast cancer screening SPECIMEN COLLECTION AT 10:43 AM INTERACTIVE DEVELOPER HOME MRI LUMBAR SPINE W/O Routine 02/22/2017 Neuropathy Results for this CONTRAST 10:02 AM INTERACTIVE DEVELOPER procedure are in the results section. XRAY CHEST 2 VIEWS Routine 02/07/2017 Viral URI with cough Results for this 2:48 PM INTERACTIVE DEVELOPER procedure are in the results section. after 12/25/2016 Results * OCCULT BLOOD ICT (04/08/2017 10:55 AM) Occult Blood ICT Negative NEG [facility] 2 Specimen Stool Performing Organization Address [facility] Phone Number [email or web address] 2 * VIT D, 25-HYDROXY (04/06/2017 10:53 AM) Vit D, 25-Hydroxy 30.7 30 - 100 ng/mL BT DIAGNOSTIC Comment: IMMUNOLOGY Vitamin D deficiency has been defined by the [place] of [employer] and Endocrine Society guideline as a level of serum 25-OH Vitamin D less than 20 ng/mL. The Endocrine Society further defines Vitamin D insufficiency as a level between 21 and 29 ng/mL and sufficiency as a level between 30 and 100 ng/mL. Performing Organization Address [facility] Phone Number [email or web address] IMMUNOLOGY * HIV-1/HIV-2 ROUTINE SCREENING (04/06/2017 10:53 AM) HIV-1/HIV-2 Negative NEG BT [facility] 4 Performing Organization Address [facility] Phone Number [email or web address] 4 * MICROALBUM, URINE (04/06/2017 10:53 AM) Microalbum, Random 1.0 0.0 - 29.0 mg/dL BT [facility] 1 Creatinine, Ur 268.1 mg/dL BT [facility] 4 Urine Microalbumin 3.7 0 - 29 mg/g UCR BT [facility] 1 Comment: To minimize intra-individual variation, analysis of three random urine samples collected over the course of a week is recommended. Performing Organization Address [facility] Phone Number [email or web address] 1 BT [facility] 4 * HEMOGLOBIN A1C (04/06/2017 10:53 AM) Hemoglobin A1c 6.4 (H) 4.3 - 6.1 % BT DIAGNOSTIC IMMUNOLOGY Est Average Gluc 137.0 mg/dL BT DIAGNOSTIC IMMUNOLOGY Specimen Blood Performing Organization Address [facility] Phone Number [facility] DIAGNOSTIC IMMUNOLOGY * COMPREHENSIVE METABOLIC PANEL(DBIL NOT INCLUDED) (04/06/2017 10:53 AM) Albumin 3.9 3.4 - 5.0 g/dL BT [facility] 1 Calcium 9.5 8.50 - 10.20 mg/dL BT [facility] 1 CO2 27.6 21 - 32 mmol/L BT [facility] 1 Chloride 106 98 - 107 mmol/L BT [facility] 1 Creatinine 0.82 0.60 - 1.30 mg/dL BT [facility] 1 Glucose 96 70 - 99 mg/dL BT [facility] 1 Alk Phos 94 45 - 117 U/L BT [facility] 1 Potassium 4.6 3.50 - 5.10 mmol/L BT [facility] 1 Sodium 140 136 - 145 mmol/L BT [facility] 1 ALT 20 12 - 78 U/L BT [facility] 1 AST 25 15 - 37 U/L BT [facility] 1 Urea Nitrogen 15 7 - 18 mg/dL BT [facility] 1 T Bilirubin 0.4 0.2 - 1.0 mg/dL BT [facility] 1 T Protein 7.6 6.4 - 8.2 g/dL BT [facility] 1 GFR, Estimated >60 mL/min/1.73 m2 BT [facility] 1 GFR, Estim, Afr-Am >60 mL/min/1.73 m2 BT [facility] 1 Anion Gap 6.4 BT [facility] 1 Specimen Blood Performing Organization Address [facility] Phone Number [facility] 1 * TSH (04/06/2017 10:53 AM) TSH 1.59 0.45 - 3.50 uIU/mL BT [facility] 4 Specimen Blood Performing Organization Address [facility] Phone Number [facility] 4 * LIPID PROFILE (04/06/2017 10:53 AM) Cholesterol 195 <200 mg/dL BT [facility] 1 Comment: REFERENCE RANGE: Desirable: <200 mg/dL Borderline: 200-240 mg/dL High Risk: >240 mg/dL Triglyceride 147 <150 mg/dL BT [facility] 1 Comment: REFERENCE RANGE: Normal: <150 mg/dL Borderline High: 150-199 mg/dL High: 200-499 mg/dL Very High: >sl=019 mg/dL HDL 52 40 - 60 mg/dL BT [facility] 1 Comment: Increased CHD risk: <40 mg/dL Decreased CHD risk: >60 mg/dL LDL 114 mg/dL BT [facility] 1 Comment: REFERENCE RANGE: Optimal: <100 mg/dL Near Optimal: 100-129 mg/dL Borderline High: 130-159 mg/dL High: 160-189 mg/dL Very High: >gg=506 mg/dL Specimen Blood Performing Organization Address City/State/Zipcode Phone Number [facility] 1 * CBC/DIFF (04/06/2017 10:53 AM) WBC 5.5 4.5 - 11.0 K/uL BT [facility] 2 RBC 4.19 (L) 4.20 - 5.40 M/uL BT [facility] 2 Hemoglobin 12.4 12.0 - 16.0 g/dL BT [facility] 2 Hematocrit 39.4 37.0 - 47.0 % BT [facility] 2 MCV 94 (H) 82 - 92 fL BT [facility] 2 MCH 29.6 27.0 - 32.0 pg BT [facility] 2 MCHC 31.5 (L) 32.0 - 36.0 g/dL BT [facility] 2 RDW 45.3 36.4 - 46.3 fL BT [facility] 2 Platelet 328 150 - 400 K/uL BT [facility] 2 Mean Platelet Volume 11.9 9.4 - 12.4 fL BT [facility] 2 Percent NRBC 0.0 BT [facility] 2 Absolute NRBC 0.00 BT [facility] 2 Neutrophil 56.5 34.0 - 70.0 % BT [facility] 2 Lymphocyte 33.5 20.0 - 50.0 % BT [facility] 2 Monocyte 4.9 (L) 5.0 - 12.0 % BT [facility] 2 Eosinophil 4.2 0.7 - 5.0 % BT [facility] 2 Basophil 0.5 0.1 - 1.2 % BT [facility] 2 Pct Immat Gran 0.4 0.0 - 0.5 BT [facility] 2 Neutrophil, Abs 3.11 1.56 - 6.13 K/uL BT [facility] 2 Lymphocyte, Abs 1.84 1.18 - 3.74 K/uL BT [facility] 2 Monocyte, Abs 0.27 0.24 - 0.36 K/uL BT [facility] 2 Eosinophil, Abs 0.23 0.04 - 0.36 K/uL BT [facility] 2 Basophil, Abs 0.03 0.01 - 0.08 K/uL BT [facility] 2 Absol Immat Gran 0.02 0.00 - 0.03 K/uL BT [facility] 2 Specimen Blood Performing Organization Address City/State/Zipcode Phone Number [facility] 2 * MRI LUMBAR SPINE W/O CONTRAST (02/22/2017 10:02 AM) Impressions Performed At IMPRESSION: SMS Discogenic degenerative changes and mild facet arthropathy at L3-L4 through L5-S1. Small posterior annular fissure and focal left subarticular disc protrusion superimposed on a mild annular bulge at L4-L5 which results in subarticular zone stenosis and mild mass effect on transiting L5 nerve roots. Moderate left L5-S1 facet foraminal stenosis, without definitive foraminal encroachment on the exiting nerve root sleeve. This [place] radiology report is a preliminary resident dictation until finalized by an attending.Changes to this preliminary report may occur in an additional preliminary or finalized version. Dictated By: Clyde Corrales MD, 02/22/2017 11:43 AM I have reviewed the study and agree with the findings in this report. Signed By: Virgilio See MD, 02/22/2017 11:57 AM Narrative Performed At EXAM: MRI LUMBAR SPINE WITHOUT CONTRAST [facility] DATE: 02/22/2017 10:02 AM INDICATION: Back pain. [...] Mild facet arthropathy. Moderate left foraminal stenosis. Procedure Note Interface, Rad/Mammog In - 02/22/2017 12:02 PM INTERACTIVE DEVELOPER EXAM: MRI LUMBAR SPINE WITHOUT CONTRAST DATE: [...] on the exiting nerve root sleeve. This EPIC radiology report is a preliminary resident dictation until finalized by an attending. Changes to this preliminary report may occur in an additional preliminary or finalized version. Dictated By: Clyde Corrales MD, 02/22/2017 11:43 AM I have reviewed the study and agree with the findings in this report. Signed By: Virgilio See MD, 02/22/2017 11:57 AM Performing Organization Address [facility] Phone Number SMS * XRAY CHEST 2 VIEWS (02/07/2017 2:48 PM) Impressions Performed At IMPRESSION: SMS No acute cardiac or pulmonary pathology is identified in the chest. Signed By: Mark Kuhn MD, 02/08/2017 7:38 AM Narrative Performed At EXAM: XR CHEST 2 VIEWS [facility] DATE:02/07/2017 2:48 PM INDICATION: cough COMPARISON: 07/12/2014 TECHNIQUE: PA and lateral views DISCUSSION: Lines/tubes/devices: None. Heart and mediastinum: The cardiac silhouette is within normal limits in its transverse diameter. There is calcification in the aortic knob. Lungs and pleura: The lung bartlett are clear of consolidation or effusion. Pulmonary vascularity is normal. Bones/soft tissues: The bony structures are intact. Procedure Note Interface, Rad/Mammog In - 02/08/2017 7:43 AM INTERACTIVE DEVELOPER EXAM: XR CHEST 2 VIEWS DATE: 02/07/2017 [...] By: Mark Kuhn MD, 02/08/2017 7:38 AM Performing Organization Address [facility] Phone Number SMS after 12/25/2016
--- OUTSIDE RECORDS SUMMARY | 2018-06-23 14:44 | XMS REPORT | Summary of Care ---
Author Author [facility] Organization [facility] Address Unknown Phone Unavailable Encounter LOUANN Santana(DON) [id number] Date(s): 09/29/17 - 09/29/17 [facility] [address] [address]- [phone] Discharge Disposition: Home or Self Care Attending Physician: Hieu Alva MD Referring Physician: Hieu Alva MD Vital Signs 1 2 3 Most recent to oldest [Reference Range]: 160.02 cm (09/20/17 1:56 PM) Height 149/68 mmHg *HI* (09/29/17 8:20 AM) 150/90 mmHg *HI* (09/29/17 8:10 AM) 137/75 mmHg (09/29/17 8:03 AM) Blood Pressure [90-140/60-90 mmHg] 15 BRMIN (09/29/17 8:20 AM) 16 BRMIN (09/29/17 8:10 AM) 15 BRMIN (09/29/17 8:03 AM) Respiratory Rate [14-20 BRMIN] 72 bpm (09/29/17 8:20 AM) 75 bpm (09/29/17 8:10 AM) 78 bpm (09/29/17 8:03 AM) Peripheral Pulse Rate [60-100 bpm] 83.636 kg (09/20/17 1:56 PM) Weight 32.66 m2 (09/20/17 1:56 PM) Body Mass Index Problem List Condition Effective Dates Status Health Status Informant Hip pain(Confirmed) Active Prediabetes(Confirme Active d) Allergies, Adverse Reactions, Alerts Substance Reaction Severity Status NKDA Active Medications acetaminophen-10 mg/mL INTRAVENOUS solution 1,000 mg, 100 mL, Route: IV, Drug form: INJ, ONCE, Dosing Weight 83.636, kg, Sta rt date: 09/29/17 8:04:00 CDT, Stop date: 09/29/17 8:04:00 CDT Notes: Infuse over 15 minutesDo not exceed 4gm/day of acetaminophen MEDICAT ION WASTE Product Size: 1000 mgProduct Wasted: ___ mg Start Date: 09/29/17 Stop Date: 09/29/17 Status: Ordered acetaminophen-hydrocodone 325 mg-10 mg oral tablet 1 tab, Route: PO, Drug Form: TAB, Dosing Weight 83.636, kg, Q4H, PRN Pain Score 4-6, Start date: 09/29/17 8:04:00 CDT, Duration: 30 day, Stop date: 10/29/17 8:0 3:00 CDT Notes: Do not exceed 4gm/day of acetaminophen. (Same as: [place] 325/10) Start Date: 09/29/17 Stop Date: 09/30/17 Status: Discontinued aspirin 81 mg tablet, enteric coated 81 mg=1 tab, PO, Daily, # 0 tab, 0 Refill(s) Start Date: 09/20/17 Status: Ordered cinnamon 500 mg oral capsule 1,000 mg=2 cap, PO, BID, # 100 cap, 0 Refill(s) Start Date: 09/20/17 Status: Ordered cyclobenzaprine 10 mg oral tablet 10 mg=1 tab, PO, TID, 0 Refill(s) Start Date: 09/20/17 Status: Ordered Fish Oil 1000 mg oral capsule 1,000 mg=1 cap, PO, TID, 0 Refill(s) Start Date: 09/20/17 Status: Ordered Garlic Oil oral capsule 0 Refill(s) Start Date: 09/20/17 Status: Ordered hydromorphone 1 mg, 0.5 mL, Route: IVP, Drug form: INJ, PRN, Dosing Weight 83.636, kg, PRN Jake n Score 7-10, Start date: 09/29/17 8:04:00 CDT, Stop date: 10/29/17 8:03:00 CDT Notes: Same as Dilaudid Start Date: 09/29/17 Stop Date: 09/30/17 Status: Discontinued hydromorphone 0.5 mg, 0.25 mL, Route: IVP, Drug form: INJ, PRN, Dosing Weight 83.636, kg, PRN Pain Score 4-6, Start date: 09/29/17 8:04:00 CDT, Duration: 30 day, Stop date: 0 10/29/17 8:03:00 CDT Notes: Same as Dilaudid Start Date: 09/29/17 Stop Date: 09/30/17 Status: Discontinued ketOROLAC 15 mg/mL injectable solution 15 mg, 0.5 mL, Route: IV, Drug form: INJ, ONCE, Dosing Weight 83.636, kg, Priori ty: NOW, Start date: 09/29/17 8:04:00 CDT, Stop date: 09/29/17 8:04:00 CDT Notes: (Same as:Toradol) IV bolus must be given >15 seconds. Give IM administration slowly and deeply into the muscle.Not for use > 4 days MEDICATION WASTE Product Size: 30 mgProduct Wasted: ___ mg Start Date: 09/29/17 Stop Date: 09/29/17 Status: Ordered Lactated Ringers IV 1,000 mL 1,000 mL, Rate: 125 ml/hr, Infuse over: 8 hr, Route: IV, Dosing Weight 83.636 kg , Total Volume: 1,000, Start date: 09/29/17 8:04:00 CDT, Duration: 30 day, Stop date: 10/29/17 8:03:00 CDT, 1.96, m2 Start Date: 09/29/17 Stop Date: 09/30/17 Status: Discontinued Lactated Ringers IV 1,000 mL 1,000 mL, Rate: 125 ml/hr, Infuse over: 8 hr, Route: IV, Dosing Weight 83.636 kg , Total Volume: 1,000, Start date: 09/29/17 6:40:00 CDT, Duration: 30 day, Stop date: 10/29/17 6:39:00 CDT, 1.96, m2 Start Date: 09/29/17 Stop Date: 09/29/17 Status: Discontinued metFORMIN 500 mg, PO, Daily, 0 Refill(s) Start Date: 09/20/17 Status: Ordered ondansetron 4 mg, 1 tab, Route: PO, Drug form: TABDIS, ONCE, Dosing Weight 83.636, kg, PRN N ausea & Vomiting, Start date: 09/29/17 8:04:00 CDT Notes: (Same as: Zofran ODT) Start Date: 09/29/17 Stop Date: 09/30/17 Status: Discontinued promethazine 12.5 mg, 0.5 mL, Route: IVPB, Drug form: INJ, Q4H, Dosing Weight 83.636, kg, PRN Nausea & Vomiting, Start date: 09/29/17 8:04:00 CDT, Duration: 30 day, Stop date: 10/29/17 8:03:00 CDT Notes: Do not give IV push. (Same as: Phenergan) Start Date: 09/29/17 Stop Date: 09/30/17 Status: Discontinued Saline Flush 0.9% 10 ml, Route: IVP, Drug Form: INJ, Dosing Weight 83.636, kg, PRN, PRN Line Flush , Start date: 09/29/17 6:40:00 CDT, Duration: 30 day, Stop date: 10/29/17 6:39:0 0 CDT Notes: Same as: BD Posiflush Sterile Start Date: 09/29/17 Stop Date: 09/30/17 Status: Discontinued tramadol 50 mg oral tablet 50 mg=1 tab, PO, Q4H, 0 Refill(s) Start Date: 09/20/17 Status: Ordered Results No data available for this section Immunizations No data available for this section Procedures Procedure Date Related Diagnosis Body Site Status Open reduction and internal fixation of 2009 Completed fracture1 1left foot Social History Social History Type Response Substance Abuse Use: None. Exercise 1 Alcohol Never Smoking Status Never smoker; Exposure to Tobacco Smoke None; Cigarette Smoking Last 365 Days No; Reg Smoking Cessation Counseling No entered on: 09/29/17 1none Assessment and Plan Extracted from: Title: Clinical Document Author: Hieu Alva MD Date: 09/29/17 HISTORY AND PHYSICAL EXAMINATION/REVIEW OF SYSTEMS Present Complaint:_bilateral low back buttock and right leg pain Past History: chronic Alcohol Details: Never Exercise Comment(s): none Tobacco Details: Use: Never smoker. Tobacco smoke exposure: None. Did the Patient Smoke Cigarettes Anytime During the Last 365 Days? No. Cessation Counseling Provided? No. Substance Abuse Details: Use: None. Open reduction and internal fixation of fracture: 2008 No qualifying data available Father: Hypertension Mother: Type 2 diabetes mellitus Grandparent: Hypertension Allergies Allergies (1) ActiveReaction NKDANone Documented Home Medications: Home Medications (7) Active aspirin 81 mg tablet, enteric coated 81 mg=1 tab, PO, Daily cinnamon 500 mg oral capsule 1,000 mg=2 cap, PO, BID cyclobenzaprine 10 mg oral tablet 10 mg=1 tab, PO, TID Fish Oil 1000 mg oral capsule 1,000 mg=1 cap, PO, TID Garlic Oil oral capsule metFORMIN 500 mg, PO, Daily tramadol 50 mg oral tablet 50 mg=1 tab, PO, Q4H Vitals Signs: Vital Signs (last 24 hrs) Last Charted Heart Rate Ejefqa69 bpm (SEP 29 06:35) Resp Rate 16 BRMIN (SEP 29 06:35) ZDO430 mmHg (SEP 29 06:35) DBP83 mmHg (SEP 29 06:35) PqA1039 % (SEP 29 06:35) General(_xAlert, Oriented, No Acute Distress):_ Pertinent Lab:___94 HEENT (_x no mass or deformity):_ Torso/Breast (_ no mass or deformity):_ deferred Heart (_x normal Rhythm, no murmur or gallop):_ Lungs (_x Clear no auscultation):_ Abdomen (no mass or tenderness):_deferred Pelvic/Rectal (no mass or tenderness):_deferred Extremities (no edema or tenderness):_deferred Neurological (_ intact):_deferred Impressions: _ Diagnosis: -lumbosacral spondylosis 09516 -lumbar stenosis 194007 -lumbar disc degeneration [id number] -lumbar disc herniation [id number] -lumbar radiculopathy 05593 -lumbago 1783 Treatment plan:_ bilateral L4-S1 TFESI
[2018-06-23] MEDS ORDERED: ONDANSETRON HCL 4 MG ORAL DISINTEGRATING TAB PO ONE (14:45)
[2018-06-23] MEDS ORDERED: KETOROLAC TROMETHAMINE 30 MG/ML VIAL IM ONE (14:45)
[2018-06-23] MEDS ORDERED: HYDROCODONE/APAP 5MG-325MG TAB PO ONE (14:45)
--- NOTE | 2018-06-26 08:00 | Diagnostic Imaging Report ---
Exam: Left foot radiographs-3 views Clinical History: left foot pain Comparison: None. Findings: Overlying cast partially obscures bony detail. Status post Lisfranc injury with postsurgical changes status post-ORIF across the base of the first metatarsal and medial cuneiform and base of the second metatarsal and intermediate cuneiform. The lateral cuneiform may have been partially or completely resected. There are two plates and multiple screws which appear grossly intact. Mild lucency along the proximal most screw of the lateral plate and along the distal aspect of the medial plate is seen on the frontal view, but not well seen on the oblique or lateral views. There is mild surrounding soft tissue edema. There is widening from the base of the first metatarsal to the intermediate cuneiform, measuring up to 4 mm. There is widening between the medial and intermediate cuneiform, measuring up to 4 mm. There are tiny bony fragments at the Lisfranc interval. No additional traumatic abnormalities are identified. There is diffuse osteopenia. There is a plantar calcaneal spur. Impression: Status post ORIF for Lisfranc injury as above. Mild lucency along the proximal most screw of the lateral plate and along the distal aspect of the medial plate is seen on the frontal view, but not well seen on the oblique or lateral views, and may be artifactual. Suggest correlation with outside hospital imaging to assess for interval change and exclude loosening. Signed by: Dr. Mali Sears MD on 06/26/2018 7:57 AM
== END 2018-06-23 17:11 | disposition home or self-care (01) ==
LOC: FSED 14:41
DX: S90.32XA Contusion of left foot, initial encounter (principal); W22.8XXA Striking against or struck by other objects, initial encounter; W20.8XXA Other cause of strike by thrown, projected or falling object, initial encounter; Y92.89 Other specified places as the place of occurrence of the external cause; Y99.0 Civilian activity done for income or pay
CPT/HCPCS: 29515; 73630; 99284; J1885; Q0162

== ENCOUNTER → 2018-06-30 | Outpatient (CLI) | payer OTHER | LOC: SLEEP 20:47 | PROVIDERS: ATTEND Psychiatry & Neurology Neurology | DX: G47.33 Obstructive sleep apnea (adult) (pediatric) (principal); G47.411 Narcolepsy with cataplexy | CPT/HCPCS: 95810 ==

== ENCOUNTER → 2018-07-01 | Outpatient (CLI) | payer OTHER | LOC: SLEEP 06:08 | PROVIDERS: ATTEND Psychiatry & Neurology Neurology | DX: G47.33 Obstructive sleep apnea (adult) (pediatric) (principal); G47.411 Narcolepsy with cataplexy | CPT/HCPCS: 95805 ==

== ENCOUNTER 2018-07-12 19:32 | Emergency (ER) | payer OTHER ==
[~2018-07-12] VITALS: Ht 160 cm; Wt 77.1 kg
--- OUTSIDE RECORDS SUMMARY | 2018-07-12 19:35 | XMS REPORT | Clinical Summary ---
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 IMPRESSION: No evidence of acute right knee fracture, dislocation, or significant joint effusion. Bone mineralization is normal. Moderate degenerative changes with tricompartmental joint space narrowing and marginal osteophytes, greatest involving medial compartment. Soft tissues are unremarkable. [facility]-[id number] Performing Organization Address City/State/Zipcode Phone Number [facility] [address] [place] [address] * XR Foot 3+ Vw Left (06/16/2018 [...] fracture or dislocation. 4.Small plantar calcaneal spur. [facility]-[id number] Procedure Note Hm Interface, Radiology Results Incoming - 06/17/2018 12:28 [...] or dislocation. 4. Small plantar calcaneal spur. [facility]-[id number] Performing Organization Address [facility]/State[facility] Phone Number [facility] [address] [place] [address] after 07/11/2017 Insurance Payer Benefit Subscriber ID Type Phone Address Plan / Group WORKERS COMP MISC xxxxxxxxxx Workers WORKER'S Comp COMP Advance Directives Patient has advance care planning documents on file. For more information, annia arriola contact: Kishan Penny [address] [place] [address]
[2018-07-13 00:57] VITALS: BP 153/84
== END 2018-07-12 20:36 | disposition home or self-care (01) ==
LOC: FSED 19:32
DX: S80.01XA Contusion of right knee, initial encounter (principal); W01.0XXA Fall on same level from slipping, tripping and stumbling without subsequent striking against object, initial encounter; Y92.008 Other place in unspecified non-institutional (private) residence as the place of occurrence of the external cause

== ENCOUNTER → 2018-09-15 | Outpatient (CLI) | payer OTHER ==
--- NOTE | 2018-09-19 01:49 | Polysomnography ---
DATE OF STUDY: 09/15/2018 REFERRING PHYSICIAN: STUDY: INTERPRETATION of CPAP TITRATION POLYSOMNOGRAPHY. IMPRESSION: 1. Response to CPAP titration at 12 cm of water pressure, which resulted in improvement of obstructive sleep apnea. 2. Snoring was resolved at ending pressure. 3. No significant limb movements were observed. RECOMMENDATIONS: 1. Use of CPAP at 12 cm of water pressure with heated humidifier. 2. Avoid consumption of alcohol or sedatives before bedtime. 3. Weight reduction to ideal body weight. 4. Advise the patient that excessive daytime sleepiness could pose a danger to the patient and others while driving or operating heavy machinery, and to use caution until symptoms are treated and improved. 5. The patient to follow up with physician to discuss results of the study. Hieu Mitchell MD JKY/KENNETHL /[id number] MTDChris
== END ==
LOC: SLEEP 11:45
PROVIDERS: ATTEND Psychiatry & Neurology Neurology
DX: G47.33 Obstructive sleep apnea (adult) (pediatric) (principal)
CPT/HCPCS: 95811